=== PATIENT | male | born 1975 | race Caucasian/White ===

== ENCOUNTER 2016-02-20 08:06 | Outpatient (CLI) ==
[2015-03-10 18:39] VITALS: BMI 26.9
--- NOTE | 2016-02-20 09:29 | US ---
EXAM: Renal ultrasound. History: Left renal mass. Technique: Multiple sonographic images through the kidneys were obtained. Color duplex Doppler was used to interrogate vascular flow. Findings: Only the right ureteral jet was seen within the bladder. Bladder was not well distended. Right kidney measures 10.8 cm in long length demonstrating normal cortical echogenicity without evid ence for hydronephrosis, mass or shadowing calculus. The left kidney measures 10.5 cm in long length demonstrating normal cortical echogenicity without e vidence for hydronephrosis. 0.8 cm left renal calculus. 1.2 cm left renal cortical cyst with minim al internal echoes. Impression: 1. No hydronephrosis. 2. Left nephrolithiasis. 3. Minimally complicated left renal cyst.
== END 2016-02-20 08:07 | disposition home or self-care (01) ==
LOC: RAD 08:06
PROVIDERS: ATTEND Nurse Practitioner Family
DX: N28.89 Other specified disorders of kidney and ureter (principal)
CPT/HCPCS: 76770